=== PATIENT | female | born 1945 | race Caucasian/White ===

== ENCOUNTER → 2016-07-08 | Outpatient (CLI) | payer MEDICARE | LOC: GMAL 17:27 | PROVIDERS: ATTEND Family Medicine | DX: R25.8 Other abnormal involuntary movements (principal); R53.83 Other fatigue ==

== ENCOUNTER → 2016-07-12 | Outpatient (CLI) | payer MEDICARE | LOC: SL 08:30 | PROVIDERS: ATTEND Family Medicine | DX: R53.83 Other fatigue (principal); G44.89 Other headache syndrome; I10 Essential (primary) hypertension; G31.84 Mild cognitive impairment of uncertain or unknown etiology ==

== ENCOUNTER → 2016-07-21 | Outpatient (CLI) | payer MEDICARE | LOC: LAB.O 08:33 | PROVIDERS: ATTEND Family Medicine | DX: E83.118 Other hemochromatosis (principal) ==

== ENCOUNTER → 2016-08-02 | Outpatient (CLI) | payer MEDICARE | LOC: SL 21:30 | PROVIDERS: ATTEND Family Medicine | DX: G47.33 Obstructive sleep apnea (adult) (pediatric) (principal); R53.83 Other fatigue; I10 Essential (primary) hypertension; G44.89 Other headache syndrome; G31.84 Mild cognitive impairment of uncertain or unknown etiology ==

== ENCOUNTER → 2016-08-27 | Outpatient (CLI) | payer MEDICARE | END | disposition home or self-care (01) | LOC: GMAL 10:49 | PROVIDERS: ATTEND Family Medicine | DX: D51.3 Other dietary vitamin B12 deficiency anemia (principal); E55.9 Vitamin D deficiency, unspecified; D53.9 Nutritional anemia, unspecified ==

== ENCOUNTER → 2016-09-30 | Outpatient (CLI) | payer MEDICARE ==
--- NOTE | 2016-09-30 18:49 | US ---
PROCEDURE: Venous,Lower Extremity RT CLINICAL HISTORY and INDICATION: Right leg pain COMPARISON: None. TECHNIQUE: Núñez scale imaging with duplex interrogation of the right lower extremity venous system was performed and multiple static images were obtained. FINDINGS: Utilizing compression and augmentation, there is no deep venous thrombus in the common femoral, superficial femoral or popliteal veins. The posterior tibial and deep peroneal veins are patent and compressible. . The greater saphenous vein at the saphenofemoral junction is patent and compressible. There is no visualization of any subcutaneous fluid collections. There is a Grimes's cyst in the right popliteal fossa measuring 6.6 x 3.2 x 2.5 cm There is no evidence of reactive or pathological lymphadenopathy in the evaluated right lower extremity. IMPRESSION: No deep venous thrombosis of the right lower extremity. There is a Grimes's cyst in the right popliteal fossa measuring 6.6 x 3.2 x 2.5 cm Location of Interpretation: [id number] Electronically signed by: Herb Musa MD 09/30/2016 6:48 PM CDT
== END | disposition home or self-care (01) ==
LOC: US 09:47
PROVIDERS: ATTEND Family Medicine
DX: I87.2 Venous insufficiency (chronic) (peripheral) (principal); M71.21 Synovial cyst of popliteal space [Baker], right knee; M79.89 Other specified soft tissue disorders

== ENCOUNTER → 2016-10-11 | Outpatient (CLI) | payer MEDICARE | END | disposition home or self-care (01) | LOC: LAB.O 10:16 | PROVIDERS: ATTEND Family Medicine | DX: E83.118 Other hemochromatosis (principal) ==

== ENCOUNTER → 2016-11-19 | Outpatient (CLI) | payer MEDICARE | END | disposition home or self-care (01) | LOC: GMAL 10:40 | PROVIDERS: ATTEND Family Medicine | DX: D51.3 Other dietary vitamin B12 deficiency anemia (principal); D53.9 Nutritional anemia, unspecified ==

== ENCOUNTER → 2017-01-07 | Outpatient (CLI) | payer MEDICARE | END | disposition home or self-care (01) | LOC: LAB.O 10:11 | PROVIDERS: ATTEND Family Medicine | DX: E83.118 Other hemochromatosis (principal) ==

== ENCOUNTER → 2017-02-07 | Outpatient (CLI) | payer MEDICARE | LOC: GMAL 10:59 | PROVIDERS: ATTEND Family Medicine | DX: D53.9 Nutritional anemia, unspecified (principal); E55.9 Vitamin D deficiency, unspecified; Z79.899 Other long term (current) drug therapy ==

== ENCOUNTER → 2017-02-28 | Outpatient (CLI) | payer MEDICARE | END | disposition home or self-care (01) | LOC: LAB.O 08:42 | PROVIDERS: ATTEND Family Medicine | DX: E83.118 Other hemochromatosis (principal) ==

== ENCOUNTER → 2017-03-14 | Outpatient (CLI) | payer MEDICARE | END | disposition home or self-care (01) | LOC: GMAL 10:38 | PROVIDERS: ATTEND Family Medicine | DX: D53.9 Nutritional anemia, unspecified (principal) ==

== ENCOUNTER → 2017-05-09 | Outpatient (CLI) | payer MEDICARE | END | disposition home or self-care (01) | LOC: LAB.O 08:56 | PROVIDERS: ATTEND Family Medicine | DX: E83.118 Other hemochromatosis (principal) ==

== ENCOUNTER → 2017-05-18 | Outpatient (CLI) | payer MEDICARE | END | disposition home or self-care (01) | LOC: GMAL 10:40 | PROVIDERS: ATTEND Family Medicine | DX: D51.3 Other dietary vitamin B12 deficiency anemia (principal); D53.9 Nutritional anemia, unspecified; E55.9 Vitamin D deficiency, unspecified ==

== ENCOUNTER → 2017-06-13 | Outpatient (CLI) | payer MEDICARE | END | disposition home or self-care (01) | LOC: LAB.O 09:24 | PROVIDERS: ATTEND Family Medicine | DX: E83.110 Hereditary hemochromatosis (principal) ==

== ENCOUNTER → 2017-06-17 | Outpatient (CLI) | payer MEDICARE | LOC: GMAL 10:36 | PROVIDERS: ATTEND Family Medicine | DX: D53.9 Nutritional anemia, unspecified (principal) ==

== ENCOUNTER → 2017-08-16 | Outpatient (CLI) | payer MEDICARE | LOC: GMAL 11:56 | PROVIDERS: ATTEND Family Medicine | DX: D53.9 Nutritional anemia, unspecified (principal); E55.9 Vitamin D deficiency, unspecified ==

== ENCOUNTER → 2017-10-03 | Outpatient (CLI) | payer MEDICARE | END | disposition home or self-care (01) | LOC: GMAL 10:17 | PROVIDERS: ATTEND Family Medicine | DX: E83.119 Hemochromatosis, unspecified (principal); D53.9 Nutritional anemia, unspecified ==

== ENCOUNTER → 2017-10-10 | Outpatient (CLI) | payer MEDICARE | END | disposition home or self-care (01) | LOC: GMAL 11:18 | PROVIDERS: ATTEND Family Medicine | DX: D53.9 Nutritional anemia, unspecified (principal) ==

== ENCOUNTER → 2018-01-02 | Outpatient (CLI) | payer MEDICARE | LOC: LAB.O 08:57 | PROVIDERS: ATTEND Family Medicine | DX: E83.118 Other hemochromatosis (principal) ==

== ENCOUNTER → 2018-01-06 | Outpatient (CLI) | payer MEDICARE | LOC: GMAL 10:55 | PROVIDERS: ATTEND Family Medicine | DX: E83.110 Hereditary hemochromatosis (principal) ==

== ENCOUNTER → 2018-05-08 | Outpatient (CLI) | payer MEDICARE | LOC: GMAL 13:46 | PROVIDERS: ATTEND Family Medicine | DX: E83.110 Hereditary hemochromatosis (principal) ==

== ENCOUNTER → 2018-08-07 | Outpatient (CLI) | payer MEDICARE | LOC: GMAL 11:37 | PROVIDERS: ATTEND Family Medicine | DX: D53.9 Nutritional anemia, unspecified (principal) ==

== ENCOUNTER → 2018-08-18 | Outpatient (CLI) | payer MEDICARE ==
--- NOTE | 2018-08-21 16:00 | MAM ---
EXAM DESCRIPTION: 3D Screening BILATERAL : Digital Mammography. CLINICAL HISTORY: 73 years Female SCREEN . No complaints. No personal or family history of breast cancer. Childbirth. Postmenopausal 42 years. No HRT. Prior breast augmentation. Prior silicone implant rupture left. Lifetime risk of developing breast cancer (Tyrer-Cuzick model)(%): 4.1 COMPARISON: 2-D digital screening bilateral mammography with Forrest implant displacement technique 04/01/2016. TECHNIQUE: Bilateral CC and MLO projection full-field images, with Forrest Implant Displacement digital tomosynthesis mammographic technique. Bilateral 2-D digital full-field images, MLO and CC projections, non-displaced. CAD Bilateral digital 2-D full-field MLO images. CAD not available for tomosynthesis or 2-D images. FINDINGS: The breast parenchymal density pattern is: Scattered areas of fibroglandular density. No skin thickening or nipple retraction. Small calcification or implant material anterior to the right implant. Bilateral solitary microcalcifications. Bilateral intramammary lymph nodes. Bilateral vascular calcifications. Bilateral saline intramuscular implants. Graham partially circumscribed mass density at the 900 position of the left breast 7 cm from the nipple. Not associated with calcifications. Not seen on the prior study. No new focal, stellate mass or density, focal asymmetry , and no suspicious microcalcifications right breast. IMPRESSION: BI-RADS CATEGORY: 0 - INCOMPLETE- Need additional imaging evaluation. FOLLOW-UP: Recall for additional imaging: Orthogonal diagnostic tomosynthesis full Field left breast imaging followed by targeted left breast ultrasound.. Written communication concerning the IMPRESSION and Follow-up, will be mailed to the patient and referring health care provider. Electronically signed by: Richi Krause MD 08/21/2018 3:57 PM [facility]
== END ==
LOC: MAMMO 09:30
PROVIDERS: ATTEND Family Medicine
DX: Z12.31 Encounter for screening mammogram for malignant neoplasm of breast (principal)

== ENCOUNTER → 2018-09-04 | Outpatient (CLI) | payer MEDICARE ==
--- NOTE | 2018-09-04 16:13 | US ---
EXAM DESCRIPTION: Breast,Left: Ultrasound CLINICAL HISTORY: 73 yearsFemaleABNORMAL MAMMO. Mass density lower outer quadrant left breast. History of previous left breast silicone implant rupture. Patient now has bilateral saline wrist implants. COMPARISON: Bilateral screening digital breast tomosynthesis 08/18/2018. Left breast digital diagnostic tomosynthesis on this visit. TECHNIQUE: Transcutaneous scanning of the left breast utilizing williamson-scale and Doppler modes. Scanning performed by the power line installer and Dr. Krause. FINDINGS: Scanning of the upper inner quadrant of the left breast in the lower outer quadrant of the left breast. Mostly dense fibroglandular tissues with implant margins visualized. At the 4:30 position, is a collection of tissue with ill-defined guo slightly echogenic anterior margins and posterior acoustic shadowing. Similar appearance to the subcapsular implant which is abutting. This tissue measures 1.3 x 0.8 x 0.7 cm and corresponds to the solitary mass density seen on the mammogram. Consistent with residual silicone implant material. IMPRESSION: 1. Bi-Rads Category 2: Benign. 2. Please refer to left breast digital diagnostic tomosynthesis examination and report on this visit. The FINDINGS and the FOLLOW-UP plan were reviewed in person with the patient after the examination. Written communication explaining the IMPRESSION and FOLLOW-UP will be mailed to the patient and referring care provider. Electronically signed by: Richi Krause MD 09/04/2018 4:10 PM [facility]
--- NOTE | 2018-09-05 20:06 | MAM ---
EXAM DESCRIPTION: 3D Diagnostic, Left: Digital Mammography CLINICAL HISTORY: 73 [id number] mass density left breast. Patient states previous left breast silicone implant rupture. Currently bilateral saline breast implants. COMPARISON: Digital diagnostic left breast tomosynthesis on this visit. Bilateral screening digital breast tomosynthesis with implant displacement technique 08/18/2018. TECHNIQUE: Left breast LM projection full-field images, with Forrest implant displacement, digital mammographic tomosynthesis technique. Left 2-D digital full-field MLO image without displacement. CAD not utilized. FINDINGS: The breast parenchymal density pattern is: Scattered areas of fibroglandular density. No skin thickening or nipple retraction Compared with the prior screening study, the dense nodule appears to be in the 5:00 position of the breast near the implant capsule. The length is approximately 9-10 mm. The mass is not seen on the tomosynthesis images. No associated microcalcifications. Densities similar to silicone implant material from prior rupture seen abutting the capsule of the current saline implant. ULTRASOUND: Scanning of the upper inner quadrant of the left breast, and the lower outer quadrant of the left breast. Mostly dense fibroglandular tissues with saline implant margins visualized. At the 4:30 position, is a collection of tissue with ill-defined guo slightly echogenic anterior margins and posterior acoustic shadowing. Similar appearance to the subcapsular implant which it is abutting. This tissue measures 1.3 x 0.8 x 0.7 cm and corresponds to the solitary mass density seen on the mammogram. Consistent with residual silicone implant material. IMPRESSION: Benign exam. BIRAD CATEGORY: 2 BENIGN FINDINGS. RECOMMENDATIONS: FOLLOW UP: Return to routine digital bilateral mammographic screening, one year interval from August 2018. Written communication explaining the IMPRESSION and follow-up, will be mailed to the patient and referring health care provider. According to the [employer], yearly mammograms are recommended starting at age 40 and continuing as long as a woman is in good health. Any breast change noted on a breast self-exam should be reported promptly to the patient's healthcare provider. Breast MRI is recommended for women with an approximately 20-25% or greater lifetime risk of breast cancer, including women with a strong family history of breast or ovarian cancer and women who have been treated for Hodgkin's disease. A negative mammographic report should not delay tissue diagnosis in patients with significant clinical history or physical findings. Extremely dense breast tissue limits the sensitivity of digital mammography. Electronically signed by: Richi Krause MD 09/05/2018 8:02 PM [facility]
== END ==
LOC: MAMMO 08:11
PROVIDERS: ATTEND Family Medicine
DX: R92.2 Inconclusive mammogram (principal)
CPT/HCPCS: 76641; 77065; G0279

== ENCOUNTER → 2018-12-05 | Outpatient (CLI) | payer MEDICARE, OTHER | LOC: GMAL 10:28 | PROVIDERS: ATTEND Family Medicine | DX: D53.9 Nutritional anemia, unspecified (principal); Z79.899 Other long term (current) drug therapy ==

== ENCOUNTER → 2019-01-08 | Outpatient (CLI) | payer MEDICARE, OTHER | LOC: LAB.O 08:58 | PROVIDERS: ATTEND Family Medicine | DX: E83.118 Other hemochromatosis (principal) ==

== ENCOUNTER → 2019-01-22 | Outpatient (CLI) | payer MEDICARE, OTHER | LOC: GMAL 10:32 | PROVIDERS: ATTEND Family Medicine | DX: D53.9 Nutritional anemia, unspecified (principal) ==

== ENCOUNTER → 2019-02-27 | Outpatient (CLI) | payer MEDICARE, OTHER | LOC: GMAL 11:19 | PROVIDERS: ATTEND Family Medicine | DX: D53.9 Nutritional anemia, unspecified (principal) ==

== ENCOUNTER → 2019-03-19 | Outpatient (CLI) | payer MEDICARE, OTHER | LOC: LAB.O 10:22 | PROVIDERS: ATTEND Family Medicine | DX: E83.118 Other hemochromatosis (principal) ==

== ENCOUNTER → 2019-03-30 | Outpatient (CLI) | payer MEDICARE, OTHER | LOC: GMAL 10:26 | PROVIDERS: ATTEND Family Medicine | DX: D50.8 Other iron deficiency anemias (principal) ==

== ENCOUNTER → 2019-04-23 | Outpatient (CLI) | payer MEDICARE, OTHER | LOC: LAB.O 09:39 | PROVIDERS: ATTEND Family Medicine | DX: E83.119 Hemochromatosis, unspecified (principal) ==

== ENCOUNTER → 2019-05-11 | Outpatient (CLI) | payer MEDICARE, OTHER | LOC: GMAL 10:14 | PROVIDERS: ATTEND Family Medicine | DX: D50.8 Other iron deficiency anemias (principal) ==

== ENCOUNTER → 2019-10-22 | Outpatient (CLI) | payer MEDICARE, OTHER | LOC: GMAL 11:46 | PROVIDERS: ATTEND Family Medicine | DX: Z79.01 Long term (current) use of anticoagulants (principal) ==

== ENCOUNTER → 2019-11-30 | Outpatient (CLI) | payer MEDICARE, OTHER | LOC: GMAL 12:23 | PROVIDERS: ATTEND Family Medicine | DX: D51.3 Other dietary vitamin B12 deficiency anemia (principal); E55.9 Vitamin D deficiency, unspecified; I48.91 Unspecified atrial fibrillation; I10 Essential (primary) hypertension; Z79.899 Other long term (current) drug therapy ==

== ENCOUNTER → 2020-01-02 | Outpatient (CLI) | payer MEDICARE, OTHER | LOC: GMAL 10:27 | PROVIDERS: ATTEND Family Medicine | DX: E83.118 Other hemochromatosis (principal) ==

== ENCOUNTER → 2020-01-18 | Outpatient (CLI) | payer MEDICARE, OTHER | LOC: LAB.O 09:16 | PROVIDERS: ATTEND Family Medicine | DX: E83.118 Other hemochromatosis (principal) ==

== ENCOUNTER → 2020-02-07 | Outpatient (CLI) | payer MEDICARE, OTHER | LOC: GMAL 14:59 | PROVIDERS: ATTEND Family Medicine | DX: D53.9 Nutritional anemia, unspecified (principal); I48.91 Unspecified atrial fibrillation; I10 Essential (primary) hypertension ==

== ENCOUNTER → 2020-02-14 | Outpatient (CLI) | payer MEDICARE, OTHER ==
--- NOTE | 2020-02-15 15:56 | MAM ---
EXAM DESCRIPTION: 3D Screening BILATERAL : Digital Mammography. CLINICAL HISTORY: 74 years Female ANNUAL SCREENING . No complaints. Menarche age 13. Childbirth age 22. Menopause age 32. HRT 5 or more years ago. Bilateral breast augmentation. Lifetime risk of developing breast cancer (Tyrer-Cuzick model)(%): 4.8. COMPARISON: Bilateral diagnostic digital breast tomosynthesis September 2018 with diagnostic directed breast ultrasound. Bilateral 2-D digital screening mammography August 2018.. No prior reports available. TECHNIQUE: Bilateral CC and MLO projection full-field images, with Forrest Implant Displacement digital tomosynthesis mammographic technique. Bilateral 2-D digital full-field images, MLO and CC projections, non-displaced. Bilateral digital 2-D full-field MLO images. Implant displaced. CAD available for 2-D images. FINDINGS: The breast parenchymal density pattern is: Scattered areas of fibroglandular density. No skin thickening or nipple retraction. Bilateral saline implants are seen with folds. Bilateral retro-muscular. Calcification abutting the right implant is stable. Bilateral intramammary lymph nodes. No new focal, stellate mass or density, focal asymmetry , and no suspicious microcalcifications bilaterally. Stable mammograms compared to prior study. Taking into account, differences in mammographic technique. IMPRESSION: Benign exam. BIRAD CATEGORY: 2 BENIGN FINDINGS. RECOMMENDATIONS: FOLLOW UP: Routine digital bilateral mammographic screening, one year interval from February 2020. Written communication explaining the IMPRESSION and follow-up, will be mailed to the patient and referring health care provider. According to the [employer], yearly mammograms are recommended starting at age 40 and continuing as long as a woman is in good health. Any breast change noted on a breast self-exam should be reported promptly to the patient's healthcare provider. Breast MRI is recommended for women with an approximately 20-25% or greater lifetime risk of breast cancer, including women with a strong family history of breast or ovarian cancer and women who have been treated for Hodgkin's disease. A negative mammographic report should not delay tissue diagnosis in patients with significant clinical history or physical findings. Extremely dense breast tissue limits the sensitivity of digital mammography. Electronically signed by: Richi Krause MD 02/15/2020 3:54 PM CDT
== END ==
LOC: MAMMO 09:27
PROVIDERS: ATTEND Family Medicine
DX: Z12.31 Encounter for screening mammogram for malignant neoplasm of breast (principal)

== ENCOUNTER → 2020-03-21 | Outpatient (CLI) | payer MEDICARE, OTHER | LOC: GMAL 13:43 | PROVIDERS: ATTEND Family Medicine | DX: D50.9 Iron deficiency anemia, unspecified (principal); I10 Essential (primary) hypertension ==

== ENCOUNTER → 2020-07-11 | Outpatient (CLI) | payer MEDICARE, OTHER | LOC: GMAL 11:12 | PROVIDERS: ATTEND Family Medicine | DX: D53.9 Nutritional anemia, unspecified (principal); Z79.899 Other long term (current) drug therapy; E78.2 Mixed hyperlipidemia; Z79.01 Long term (current) use of anticoagulants ==

== ENCOUNTER → 2020-08-01 | Outpatient (CLI) | payer MEDICARE, OTHER | LOC: LAB.O 09:17 | PROVIDERS: ATTEND Family Medicine | DX: E83.118 Other hemochromatosis (principal) ==

== ENCOUNTER → 2020-08-25 | Outpatient (CLI) | payer MEDICARE, OTHER | LOC: GMAL 14:27 | PROVIDERS: ATTEND Family Medicine | DX: D50.9 Iron deficiency anemia, unspecified (principal); I48.91 Unspecified atrial fibrillation ==